=== PATIENT | male | born 1980 | race Caucasian/White ===

== ENCOUNTER 2024-01-05 00:42 | Inpatient (IN) | payer MEDICARE, MEDICAID ==
[~2024-01-05] VITALS: Ht 172.7 cm; Wt 109.0 kg
[2024-01-05 01:00] LABS: BASOPHILS % (AUTO) 1.3 % (0.0-2.0); EOSINOPHILS % (AUTO) 6.9 % (1.0-6.0); HEMATOCRIT 40.2 % (41-53); HEMOGLOBIN 12.8 g/dL (13.5-17.5); LYMPHOCYTES # (AUTO) 2.5 K/uL (1.0-4.8); LYMPHOCYTES % (AUTO) 20.7 % (22.0-44.0); MEAN CORPUSCULAR HEMOGLOBIN 24.7 pg (26.0-34.0); MEAN CORPUSCULAR VOLUME 77 fL (80-100); MONOCYTES # (AUTO) 1.5 K/uL (0.1-1.0); MONOCYTES % (AUTO) 12.1 % (2.0-9.0); NEUTROPHILS # (AUTO) 7.1 K/uL (1.8-7.7); PLATELET COUNT (AUTO) 321 K/uL (150-450); RED BLOOD CELL COUNT(AUTO) 5.21 MIL/uL (4.50-5.90)
[2024-01-05 01:10] LABS: ANION GAP 10 mmol/L (8-16); CALCIUM, TOTAL 8.9 mg/dL (8.8-10.5); CARBON DIOXIDE 24 mmol/L (22-29); CHLORIDE 105 mmol/L (98-107); CREATININE 1.44 mg/dL (0.60-1.30); GLOMERULAR FILTR. RATE CALC 53 mL/min (>60); GLUCOSE,RANDOM 98 mg/dL (70-110); SODIUM SERUM 139 mmol/L (136-145); UREA NITROGEN, BLOOD 29 mg/dL (7-18)
[2024-01-05] MEDS ORDERED: ZOLPIDEM TARTRATE 10 MG TABLET PO PRN (01:30)
[2024-01-05 01:39] LABS: ALCOHOL, BLOOD (SERUM) < 3 mg/dL (0-10)
[2024-01-05 02:06] LABS: COVID AG,FIA SOURCE NASAL SWAB
[2024-01-05 02:38] LABS: ALCOHOL, URINE DRUG SCREEN NEGATIVE (NEGATIVE); AMPHET/METH SCREEN,URINE NEGATIVE (NEGATIVE); BARBITURATE SCREEN, URINE NEGATIVE (NEGATIVE); BENZODIAZEPINES SCREEN,URINE NEGATIVE (NEGATIVE); CANNABINOID SCREEN,URINE NEGATIVE (NEGATIVE); COCAINE SCREEN,URINE NEGATIVE (NEGATIVE); METHADONE SCREEN, URINE NEGATIVE (NEGATIVE); OPIATE SCREEN,URINE NEGATIVE (NEGATIVE); PHENCYCLIDINE SCREEN,URINE NEGATIVE (NEGATIVE)
[2024-01-05 02:39] LABS: APPEARANCE,URINE CLEAR (CLEAR); BILIRUBIN,URINE NEGATIVE (NEGATIVE); COLOR,URINE LIGHT YELLOW (YELLOW); GLUCOSE, URINE (UA) >=1000 mg/dL (NEGATIVE); KETONES,URINE NEGATIVE (NEGATIVE); LEUKOCYTE ESTERASE ,URINE NEGATIVE (NEGATIVE); NITRATE,URINE NEGATIVE (NEGATIVE); OCCULT BLOOD,URINE NEGATIVE (NEGATIVE); PROTEIN,URINE 30-70 mg/dL (NEGATIVE); SPECIFIC GRAVITIY, URINE 1.036 (1.003-1.030)
[2024-01-05 03:12] LABS: SARS-COV2 (COVID) ANTIGEN,FIA Negative (Negative)
[2024-01-05 03:16] LABS: RBC MORPHOLOGY COMMENT ABNORMAL RBC MORPH
[2024-01-05 03:29] LABS: BACTERIA,URINE None Seen /HPF (None Seen); RBC,URINE None Seen /HPF (0-2); SQUAMOUS EPITHELIAL CELL,UR Few /LPF (None Seen); URINALYSIS COMMENT Moderate Sperm seen.; WBC,URINE None Seen /HPF (0-5)
[2024-01-05] MEDS ORDERED: LOPERAMIDE HCL 2 MG CAPSULE PO PRN (14:30)
[2024-01-05] MEDS ORDERED: DOCUSATE SODIUM 100 MG CAPSULE PO PRN (14:30)
[2024-01-05] MEDS ORDERED: MAGNESIUM HYDROXIDE SUSPENSION 30 ML UDCUP PO PRN (14:30)
[2024-01-05] MEDS ORDERED: ACETAMINOPHEN 325 MG TABLET PO PRN (14:30)
[2024-01-05] MEDS ORDERED: MAG HYDROX/ALUMINUM HYD/SIMETH ES 30 ML SUSPENSION UDCUP PO PRN (14:30)
[2024-01-05] MEDS ORDERED: ONDANSETRON HCL 4 MG TABLET PO PRN (14:30)
[2024-01-05] MEDS ORDERED: GuaiFENesin/D-METHORPHAN [SUGAR-FREE] 200-20MG/10 ML SYRUP UDCUP PO PRN (14:30)
[2024-01-05] MEDS ORDERED: PETROLATUM,WHITE 28 GM JELLY TP PRN (14:30)
[2024-01-05] MEDS ORDERED: CloNIDine HCL 0.1 MG TABLET PO PRN (14:30)
[2024-01-05] MEDS ORDERED: NICOTINE 14 MG/24 HOUR PATCH TD PRN (14:30)
[2024-01-05] MEDS ORDERED: ALBUTEROL SULFATE HFA 90 MCG/PUFF 8 GM INHALER IH PRN (14:30)
[2024-01-05] MEDS ORDERED: IBUPROFEN 400 MG TABLET PO PRN (14:30)
[2024-01-05 15:56] VITALS: BP 134/80; PULSE 74; RESP 17; TEMP 97.9
[2024-01-05 16:49] VITALS: BP 134/80; PULSE 74; RESP 17; TEMP 97.9; O2SAT 96
[2024-01-05] MEDS: LORazepam 2 MG TABLET PO PRN (17:03)
[2024-01-05] MEDS: HALOPERIDOL 5 MG TABLET PO PRN (17:03)
[2024-01-05 20:42] VITALS: RESP 18
[2024-01-05 20:49] VITALS: RESP 18
[2024-01-06 07:54] LABS: HEMOGLOBIN A1C 6.1 % (3.8-5.6)
[2024-01-06 08:07] LABS: CHOL/HDL RATIO 5.5 (4.2-7.3); THYROID STIMULATING HORMONE 1.07 uIU/mL (0.36-3.74)
[2024-01-06 09:48] VITALS: RESP 17; TEMP 98
[2024-01-06] MEDS: SERTRALINE HCL 50 MG TABLET PO SCH (10:45)
[2024-01-06] MEDS ORDERED: ARIPiprazole 5 MG TABLET PO SCH (10:45)
[2024-01-06 15:40] VITALS: RESP 17; TEMP 97
[2024-01-06 21:46] VITALS: BP 123/73; PULSE 86; RESP 18; TEMP 97.5
[2024-01-06 21:49] VITALS: BP 123/78; PULSE 86; RESP 18; TEMP 97.5; O2SAT 96
[2024-01-07 08:20] LABS: BASOPHILS % (AUTO) 0.9 % (0.0-2.0); EOSINOPHILS % (AUTO) 7.9 % (1.0-6.0); HEMATOCRIT 36.5 % (41-53); HEMOGLOBIN 11.9 g/dL (13.5-17.5); LYMPHOCYTES # (AUTO) 1.7 K/uL (1.0-4.8); LYMPHOCYTES % (AUTO) 17.5 % (22.0-44.0); MEAN CORPUSCULAR HGB CONC 32.7 G/dL (31.0-37.0); MEAN CORPUSCULAR VOLUME 77 fL (80-100); MONOCYTES # (AUTO) 1.1 K/uL (0.1-1.0); MONOCYTES % (AUTO) 10.7 % (2.0-9.0); NEUTROPHILS # (AUTO) 6.3 K/uL (1.8-7.7); PLATELET COUNT (AUTO) 275 K/uL (150-450); RED BLOOD CELL COUNT(AUTO) 4.76 MIL/uL (4.50-5.90)
[2024-01-07 10:20] VITALS: BP 125/79; PULSE 74; RESP 16; TEMP 97.3
[2024-01-07 10:41] LABS: RBC MORPHOLOGY COMMENT ABNORMAL RBC MORPH
[2024-01-07] MEDS: ESCITALOPRAM OXALATE 10 MG TABLET PO SCH (21:01)
[2024-01-07 21:33] VITALS: BP 122/75; PULSE 62; RESP 18; TEMP 98.1; O2SAT 97
[2024-01-08 09:10] VITALS: BP 129/87; PULSE 85; RESP 18; TEMP 97.6; O2SAT 96
[2024-01-08 23:11] VITALS: BP 125/82; PULSE 87; RESP 18; TEMP 97.9; O2SAT 97
[2024-01-09 09:28] VITALS: BP 140/80; PULSE 98; RESP 19; TEMP 96.8; O2SAT 97
[2024-01-09] MEDS ORDERED: ESCI-8 PO (11:15)
== END 2024-01-09 14:10 | disposition home or self-care (01) | DRG 885 ==
LOC: EMS 00:42 → 3EI 09:32
PROVIDERS: ADMIT Psychiatry & Neurology Psychiatry; ATTEND Psychiatry & Neurology Psychiatry
PROC: GZHZZZZ Group Psychotherapy (ICD-10-PCS; principal; 2024-01-06)
PROC: GZ52ZZZ Individual Psychotherapy, Cognitive (ICD-10-PCS; 2024-01-06)
DX: F33.2 Major depressive disorder, recurrent severe without psychotic features (principal); N17.9 Acute kidney failure, unspecified; R45.851 Suicidal ideations; F41.9 Anxiety disorder, unspecified; I10 Essential (primary) hypertension; K21.9 Gastro-esophageal reflux disease without esophagitis; G47.00 Insomnia, unspecified; E78.00 Pure hypercholesterolemia, unspecified; Z20.822 Contact with and (suspected) exposure to COVID-19; E11.9 Type 2 diabetes mellitus without complications; D72.829 Elevated white blood cell count, unspecified; Z88.2 Allergy status to sulfonamides; Z88.1 Allergy status to other antibiotic agents; Z88.8 Allergy status to other drugs, medicaments and biological substances; Z91.148 Patient's other noncompliance with medication regimen for other reason
CPT/HCPCS: 80048; 80061; 80307; 81001; 83036; 84443; 85025; 99285; G0480

== ENCOUNTER 2024-11-17 17:07 | Emergency (ER) | payer MEDICARE, MEDICAID ==
[~2024-11-17] VITALS: Ht 170.2 cm; Wt 108.0 kg
[~2024-11-17 17:07] MED LIST: ESCI20TA37 PO
[2024-11-17] MEDS: OxyCODONE HCL 5 MG IR TABLET PO ONE (17:36)
[2024-11-17 19:50] VITALS: BP 135/76; PULSE 72; RESP 18; TEMP 97.9; O2SAT 96
[2024-11-18] MEDS ORDERED: EMPA25TA3 PO (09:37)
[2024-11-18] MEDS ORDERED: ESCI20TA87 PO (09:37)
[2024-11-18] MEDS ORDERED: LOSA-417 PO (09:37)
[2024-11-18] MEDS ORDERED: QUET25TA36 PO (09:37)
[2024-11-18] MEDS ORDERED: LINA145C PO (09:37)
[2024-11-18] MEDS ORDERED: FENO48TA12 PO (09:37)
[2024-11-18] MEDS ORDERED: FOLI-130 PO (09:37)
== END 2024-11-17 21:03 ==
LOC: EMS 17:07
DX: S83.91XA Sprain of unspecified site of right knee, initial encounter (principal); E11.9 Type 2 diabetes mellitus without complications; I10 Essential (primary) hypertension; E78.00 Pure hypercholesterolemia, unspecified; Z88.1 Allergy status to other antibiotic agents; Z88.2 Allergy status to sulfonamides; Z88.8 Allergy status to other drugs, medicaments and biological substances; Z79.899 Other long term (current) drug therapy; Z91.199 Patient's noncompliance with other medical treatment and regimen due to unspecified reason; W01.0XXA Fall on same level from slipping, tripping and stumbling without subsequent striking against object, initial encounter; Y93.89 Activity, other specified; Y92.89 Other specified places as the place of occurrence of the external cause; Y99.8 Other external cause status
CPT/HCPCS: 99283

== ENCOUNTER 2025-02-15 00:09 | Emergency (ER) | payer MEDICARE, MEDICAID ==
[~2025-02-15] VITALS: Ht 170.2 cm; Wt 111.4 kg
[~2025-02-15 00:09] MED LIST changes: +EMPA25TA3 PO; -ESCI20TA37 PO; +ESCI20TA87 PO; +FENO48TA12 PO; +FOLI-130 PO; +LINA145C PO; +LOSA-417 PO; +QUET25TA36 PO
[2025-02-15 00:22] VITALS: TEMP 98.1
[2025-02-15] MEDS: ACETAMINOPHEN 500 MG TABLET PO ONE (01:17)
[2025-02-15] MEDS: KETOROLAC TROMETHAMINE 30 MG/ML VIAL IM ONE (01:18)
[2025-02-15 01:24] LABS: PLATELET COUNT (AUTO) 235 K/uL (150-450); RED BLOOD CELL COUNT(AUTO) 4.82 MIL/uL (4.50-5.90); RED CELL DISTRIBUTION WIDTH 13.0 % (11.5-14.5); WHITE BLOOD COUNT (AUTO) 6.9 K/uL (4.5-11.0)
[2025-02-15 01:29] LABS: CALCIUM, TOTAL 8.8 mg/dL (8.8-10.5); CREATININE 1.15 mg/dL (0.60-1.30); GLOMERULAR FILTR. RATE CALC > 60 mL/min (>60); GLUCOSE,RANDOM 129 mg/dL (70-110); SODIUM SERUM 143 mmol/L (136-145); UREA NITROGEN, BLOOD 24 mg/dL (7-18)
[2025-02-15 01:30] LABS: APPEARANCE,URINE CLEAR (CLEAR); GLUCOSE, URINE (UA) >=1000 mg/dL (NEGATIVE); LEUKOCYTE ESTERASE ,URINE NEGATIVE (NEGATIVE); NITRATE,URINE NEGATIVE (NEGATIVE); OCCULT BLOOD,URINE NEGATIVE (NEGATIVE); SPECIFIC GRAVITIY, URINE 1.043 (1.003-1.030)
[2025-02-15 01:45] LABS: SQUAMOUS EPITHELIAL CELL,UR Few /LPF (None Seen)
[2025-02-15 03:25] VITALS: BP 133/78; PULSE 100; RESP 16; O2SAT 99
[2025-02-15] MEDS ORDERED: ONDA-104 PO (03:38)
== END 2025-02-15 03:55 | disposition home or self-care (01) ==
LOC: EMS 00:11
DX: K52.9 Noninfective gastroenteritis and colitis, unspecified (principal); R10.9 Unspecified abdominal pain; F41.9 Anxiety disorder, unspecified; F32.A Depression, unspecified; E78.00 Pure hypercholesterolemia, unspecified; E11.9 Type 2 diabetes mellitus without complications; I10 Essential (primary) hypertension; K21.9 Gastro-esophageal reflux disease without esophagitis; Z88.2 Allergy status to sulfonamides; Z88.1 Allergy status to other antibiotic agents; Z79.899 Other long term (current) drug therapy
CPT/HCPCS: 99283; 80048; 81001; 83690; 85025; 36415; 96372; J1885